=== PATIENT | male | born 1980 | race Caucasian/White ===

== ENCOUNTER 2025-03-23 12:35 | Emergency (ER) | payer SELFPAY ==
[2025-03-23 12:43] VITALS: BP 130/62; PULSE 96; O2SAT 98
[2025-03-23 13:24] VITALS: BP 124/70; PULSE 89; RESP 16; TEMP 36.9; O2SAT 98; BMI 25.1
--- NOTE | 2025-03-23 13:46 | ED_ITS ---
HPI - General Adult General Chief complaint: General Medical Stated complaint: heat exhaustion Time Seen by Provider: 03/23/25 13:40 Source: patient and EMS Mode of arrival: EMS Limitations: language barrier History of Present Illness ED Provider: Nathalia Howard APRN HPI narrative: 45 yo male who is deaf and uses ASL, history of ADD here with complaints of being homeless. Patient reports that he recently lost his car and does not have a place to live. For the last 2-3 days he has not had much to eat or drink. He called EMS to transport him as he was concerned that he may be dehydrated. While he was here in our emergency room he was able to eat and drink. When I examined him he had no physical complaints. Related Data Allergies Allergy/AdvReac Type Severity Reaction Status Date / Time No Known Allergies Allergy Verified 03/23/25 13:28 Review of Systems Review of Systems: Yes all other systems are reviewed and are negative Constitutional: Constitutional: Reports no additional constitutional complaints, Denies body ache(s), Denies chills, Denies fever(s), Denies headache(s) and Denies weakness Eyes: Eyes: Reports no additional eye complaints and Denies change in vision ENT: Reports system reviewed and no additional complaints, except as documented, Denies dizziness, Denies headache(s), Denies nasal congestion, Denies nasal discharge and Denies neck pain Cardiovascular: Cardiovascular: Reports no additional cardiovascular complaints, Denies chest pain, Denies leg edema and Denies dyspnea Respiratory: Respiratory: Reports no additional respiratory complaints, Denies cough and Denies dyspnea Gastrointestinal: Gastrointestinal: Reports no additional gastrointestinal complaints, Denies abdominal pain, Denies diarrhea, Denies nausea and Denies vomiting Genitourinary: Genitourinary: Denies urinary incontinence Musculoskeletal: Musculoskeletal: Reports no additional musculoskeletal complaints, Denies back pain, Denies arthralgias, Denies joint swelling, Denies neck pain, Denies numbness and Denies tingling Integumentary/Breasts: Skin/Breast: Reports system reviewed and no additional complaints, except as docu and Denies rash Neurologic: Reports system reviewed and no additional complaints, except as documented, Denies Abnormal speech present, Denies dizziness, Denies headache(s), Denies numbness, Denies tingling and Denies weakness [facility] Past Medical History Attestation statement: The following information was validated with the patient. Source: old records reviewed and nursing notes reviewed Social History Social History Advance Directives: No Advance Directives Information Provided: No Physical Exam ED Vital Signs: Vital Signs - 24 hr 03/23/25 13:24 Temperature 98.5 F Pulse Rate 89 Respiratory Rate 16 Blood Pressure 124/70 Pulse Oximetry 98 Oxygen Delivery Method Room Air BMI result Body Mass Index 25.1 Const General: cooperative, healthy appearing, comfortable and no acute distress Orientation/consciousness: patient oriented x3 Limitations: no limitations HENMT Head: Yes normal to inspection Ears: hearing grossly normal bilaterally Eyes General: appearance normal, both eyes and all related structures Pupils: Equal, round and reactive pupils present Neck Neck: Yes normal visual inspection Chest Chest palpation & inspection: normal inspection of the chest Resp Effort & Inspection: normal respiratory effort Skin General skin exam: no rashes or lesions noted Neuro General: patient oriented x3, no focal motor deficits and normal sensation to monofilament Cranial nerves: Yes Equal, round and reactive pupils present Cognition (Neuro): normal cognition Speech: No Abnormal speech present Gait exam (Neuro): Normal gait present Motor exam (neuro): 5/5 motor strength present throughout Medical Decision Making Medical Decision Making MDM Narrative: 45 yo male who is deaf and uses ASL, history of ADD here with complaints of being homeless. Patient reports that he recently lost his car and does not have a place to live. For the last 2-3 days he has not had much to eat or drink. He called EMS to transport him as he was concerned that he may be dehydrated. While he was here in our emergency room he was able to eat and drink. When I examined him he had no physical complaints. VSS Will discharge Differential Diagnosis Differential Diagnoses: The differential diagnosis associated with the presentation includes homelessness Admission/Observation Consideration of admission/observation: Escalation of care including admission/observation considered Social Determinants Patient?s care significantly limited by Social Determinants of Health including: Inadequate housing and Problems related to primary support group Discharge Plan Discharge Clinical Impression: Homelessness Patient Disposition: Home, Self-Care Instructions: Normal Exam (ED) Print Language: Unable To Collect
--- NOTE | 2025-03-23 14:03 | PC.NURSE ---
all interactions with this patient were with [employer] electrician shop and the presence of other staff members. this RN asissted security at cafeteria where patient was eating with [employer] shop as patient needed ASL [place]yr[place] electrician shop. patient was escorted back to ED unit as he was registered as a patient by ems and brought to the waiting room initially. in family room with ASL interp on [employer] patient was triaged and questioned by security about being in back of cafeteria where staff works and took food off trays where staff in cafeteria contacted security. patient stated in triage assessment that he is homeless and has been walking out in the heat and had a headache and bilat knee pain- see triage note for additional assessment and vital signs. patient was then escorted back to waiting room until bed becomes available. This RN was contacted by security for assistance with [employer], patient had been found with large amount of food / drink items that were taken from cafeteria without payment per security. patient was seen by ED provider Nathalia and this RN with security presence and deemed stable for discharge. patient papers were printed and this RN also collected resources for patient with shelters and [facility] patient resource booklet. [employer] was used for patient discharge and patient started screaming at this RN and security about lack of resources and food. attempted to educate patient on resources provided and patient then became to escalate and was making threatening gestures at staff. patient was then walked off of hospital property by security. patient had steady gait.
== END 2025-03-23 14:15 | disposition home or self-care (01) ==
LOC: HO.ED 14:05
PROVIDERS: Emergency Provider Emergency Medicine
DX: T67.5XXA Heat exhaustion, unspecified, initial encounter (principal); X30.XXXA Exposure to excessive natural heat, initial encounter; Y93.89 Activity, other specified; Y92.89 Other specified places as the place of occurrence of the external cause; Y99.8 Other external cause status; Z59.00 Homelessness unspecified
CPT/HCPCS: 99281

== ENCOUNTER 2025-03-24 01:59 | Emergency (ER) | payer SELFPAY ==
[2025-03-24 02:06] VITALS: BP 147/106; PULSE 67; RESP 17; TEMP 36.4; O2SAT 100; BMI 24.4
[2025-03-24 02:08] VITALS: BP 122/62; PULSE 66; O2SAT 66
--- NOTE | 2025-03-24 02:22 | ED_ITS ---
HPI - Extremity Problem General Chief complaint: Extremity Problem Stated complaint: BLISTERS ON FEET Time Seen by Provider: 03/24/25 02:22 Source: patient and seismic interpreter (certified court interpreter) Mode of arrival: EMS Limitations: language barrier and other History of Present Illness ED Provider: HPI Narrative: Illness from the side of the road he states that he has been walking for a long time and that is why he flagged down the EMS, he also states he has blisters on his feet and is concerned that they may be infected, he was also around people and so he was also coughing and wondering whether he has a flu or COVID. ASLinterpretation utilized in his care, no fevers or chills. No rashes no redness reported Related Data Allergies Allergy/AdvReac Type Severity Reaction Status Date / Time No Known Allergies Allergy Verified 03/24/25 02:09 Review of Systems Constitutional: Constitutional: Reports as per [facility] Social History Social History Smoked in Last 30 Days: Yes Use of substances other than those prescribed or required for medical reasons: Yes Substance Use Type: Marijuana Advance Directives: No Advance Directives Information Provided: No Do you have a plan to hurt others: No Plan Physical Exam Vital Signs: Vital Signs: Last Vital Signs Temp 97.6 F 03/24/25 02:06 Pulse 67 03/24/25 02:06 Resp 17 03/24/25 02:06 BP 147/106 H 03/24/25 02:06 Pulse Ox 100 03/24/25 02:06 O2 Del Method Room Air 03/24/25 02:06 BMI result Body Mass Index 24.4 Const: Other: Unkempt Lungs are clear Alert and oriented x4 Examination of bilateral lower extremities with no edema no blisters, distal pulses intact Calluses on the plantar aspect of his feet Medical Decision Making Medical Decision Making [facility] Narrative: Physical examination of his lungs and his feet, patient is homeless, has been walking for a long time, he is from [place] would like some information about shelters Differential Diagnosis Differential Diagnoses: The differential diagnosis associated with the presentation includes (Cellulitis, blister is, DVT, pneumonia, viral illness) Lab Data Labs: Lab Results 03/24/25 Range/Units 02:12 Influenza Type A (PCR) NEGATIVE (Negative) Influenza Type B (PCR) NEGATIVE (Negative) RSV RNA Qual (PCR) NEGATIVE (Negative) SARS-CoV-2 RNA (RT-PCR) NEGATIVE (Negative) Social Determinants Patient?s care significantly limited by Social Determinants of Health including: Inadequate housing, Low income and Unemployment Discharge Plan Discharge Clinical Impression: Bilateral foot pain Patient Disposition: Home, Self-Care Additional Instructions: Your flu and COVID tests are negative, feet do not have any blisters, you do have calluses, there was no infection Long-Term information provided to you on discharge Print Language: Unable To Collect
--- OUTSIDE RECORDS SUMMARY | 2025-03-24 02:27 | XMS_ITS | Clinical Summary ---
Author Organization [facility] [place] [address] Care Team Providers Care District Manager Name Role Phone Unavailable Primary Care Provider Unavailabl e Social History Tobacco Use Types Packs/Day Years Used Date Smoking Tobacco: Never Assessed Sex and Gender Information Value Date Recorded Sex Assigned at Not on file Legal Sex Male 2:19 PM EDT Gender Identity Not on file Sexual Orientation Not on file Plan of Treatment Health Maintenance Due Date Last Done Comments HIV screen 1999 Hepatitis C Screening 1999 Lipid Screening 1999 Hepatitis B vaccine (0-59 yr s) and Risk (1) 01/28/2000 Tetanus/Diphtheria/Pertussis Vaccines (1 - Tdap) 01/28/2000 Covid-19 Vaccine (3 season) 2024, 12/23/2020 Influenza (Flu) vaccine (1 o f 1 - Influenza standard series) 05/05/2025 Insurance [facility] MANAGED MEDICARE
--- NOTE | 2025-03-24 02:32 | PC.NURSE ---
pt biba from the side of the road, a&ox4, respirations even and unlabored. pt reports he has been walking around a lot and developed painful blisters on his feet, pt also states he has been around a lot of people and requesting a flu and covid test. pt cms in tact at this time. vss. asl video contracting engineer at bedside.
[2025-03-24 02:52] LABS: Resp Syncy Virus RNA Qual PCR NEGATIVE (Negative); SARS COV2 PCR INHOUSE NEGATIVE (Negative)
--- NOTE | 2025-03-24 02:59 | PC.NURSE ---
pt medicated per nov, tolerated whole well with water
--- NOTE | 2025-03-24 03:23 | PC.NURSE ---
ict developer at bedside. pt upset about discharge, list of shelters given to pt and dr. abdul at bedside, pt upset verbally at staff and swearing. security at bedside
[2025-03-24 03:24] VITALS: BP 147/106; PULSE 67; RESP 17; TEMP 36.4; O2SAT 100
== END 2025-03-24 03:25 | disposition home or self-care (01) ==
PROVIDERS: Emergency Provider Emergency Medicine
DX: M79.672 Pain in left foot (principal); M79.671 Pain in right foot; L84 Corns and callosities; Z59.00 Homelessness unspecified; Z03.818 Encounter for observation for suspected exposure to other biological agents ruled out; R05.9 Cough, unspecified
CPT/HCPCS: 87637; 99283; 99284